=== PATIENT | male | born 1985 ===

== ENCOUNTER 2020-09-27 12:40 | Emergency (ER) | payer OTHER, MEDICAID, SELFPAY ==
[2020-09-27 12:27] VITALS: BP 95/67; PULSE 94; RESP 18; TEMP 37.2; O2SAT 98; BMI 24.2
--- NOTE | 2020-09-27 12:34 | PC.NURSE ---
pt pink, warm and dry. denies injuries, assessment deferred to dr. covarrubias.
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
== END 2020-09-27 13:42 | disposition home or self-care (01) ==
PROVIDERS: Emergency Provider Emergency Medicine
DX: Z00.8 Encounter for other general examination (principal)
CPT/HCPCS: 99281